=== PATIENT | female | born 1950 | race Caucasian/White ===

== ENCOUNTER → 2017-03-23 | Outpatient (CLI) | payer MEDICARE, OTHER ==
[~2017-03-23] MED LIST: CIPRO500 MG PO; FLAGYL500 MG PO; HYZAAR 50-12.51 EACH PO; IRON325 PO; LISINOPRIL10 MG PO; NORCO 5-325 TA1 EACH PO; PRILOSEC 20 MG20 MG PO; RESTASIS1 EACH OPHTHALMIC; SERTRALINE HCL50 MG PO; ZANTAC 150MG T150 MG PO
== END ==
LOC: M.RAD 16:36
DX: K44.9 Diaphragmatic hernia without obstruction or gangrene (principal); R06.09 Other forms of dyspnea; R06.02 Shortness of breath; R00.2 Palpitations; R55 Syncope and collapse

== ENCOUNTER → 2017-03-30 | Outpatient (CLI) | payer MEDICARE, OTHER | LOC: M.RAD 08:48 | DX: K21.9 Gastro-esophageal reflux disease without esophagitis (principal); K44.9 Diaphragmatic hernia without obstruction or gangrene ==

== ENCOUNTER → 2017-08-25 | Outpatient (CLI) | payer MEDICARE, OTHER | LOC: M.ULTRA 09:16 | DX: K80.20 Calculus of gallbladder without cholecystitis without obstruction (principal); K76.0 Fatty (change of) liver, not elsewhere classified; N28.1 Cyst of kidney, acquired; K21.9 Gastro-esophageal reflux disease without esophagitis ==

== ENCOUNTER 2017-08-26 10:52 | Inpatient (IN) | payer MEDICARE, OTHER ==
[~2017-08-26] VITALS: Ht 167.6 cm; Wt 88.0 kg
[~2017-08-26 10:52] MED LIST changes: -CIPRO500 MG PO; -FLAGYL500 MG PO; -HYZAAR 50-12.51 EACH PO; -IRON325 PO; -NORCO 5-325 TA1 EACH PO; -PRILOSEC 20 MG20 MG PO; -RESTASIS1 EACH OPHTHALMIC; -SERTRALINE HCL50 MG PO; -ZANTAC 150MG T150 MG PO
[2017-08-26 10:56] VITALS: BP 156/59
[2017-08-26 11:07] LABS: ABSOLUTE BASOPHILS 0.1 thou/uL (0.0-0.2); ABSOLUTE EOSINOPHILS 0.1 thou/uL (0.0-0.7); ABSOLUTE MONOCYTES 0.6 thou/uL (0.0-1.2); ABSOLUTE NEUTROPHILS 3.4 thou/uL (1.6-8.1); BASOPHILS 1.3 %; EOSINOPHILS 1.2 %; HEMATOCRIT 41.9 % (37.0-47.0); LYMPHOCYTES 32.8 %; MCH 30.8 pg (26.0-34.0); MCHC 33.5 g/dL (28.0-37.0); MCV 91.9 fL (80.0-100.0); MONOCYTES 9.3 %; MPV 11.4 fl. (7.2-11.1); NUCLEATED RBCS 0 /100WBC; PLATELET COUNT* 114 thou/uL (150-400); POLYS 55.4 %; RBC 4.56 mil/uL (4.20-5.00); RDW-CV 16.4 % (10.5-14.5); WBC 6.1 thou/uL (4.0-11.0)
[2017-08-26 11:15] LABS: ANION GAP 8 mmol/L (7-16); BUN 20 mg/dL (7-18); CALCIUM 9.5 mg/dL (8.5-10.1); CHLORIDE 103 mmol/L (98-107); CO2 28 mmol/L (21-32); GLUCOSE 84 mg/dL (70-99); POTASSIUM 3.7 mmol/L (3.5-5.1); SODIUM 139 mmol/L (136-145)
[2017-08-26 11:25] LABS: ALBUMIN 3.9 g/dL (3.4-5.0); ALKALINE PHOSPHATASE 98 U/L (46-116); LIPASE 199 U/L (73-393); NT-PRO BRAIN NAT PEPTIDE 222 pg/mL (<300); SGOT 19 U/L (15-37); SGPT 24 U/L (30-65); TOTAL BILIRUBIN 0.5 mg/dL (<0.1-1.0); TOTAL PROTEIN 7.2 g/dL (6.4-8.2); TROPONIN-I LEVEL <0.06 ng/mL (<0.06)
[2017-08-26] MEDS ORDERED: SERTRALINE HCL50 MG PO (11:31)
[2017-08-26] MEDS ORDERED: HYZAAR 50-12.51 EACH PO (11:31)
[2017-08-26] MEDS ORDERED: PRILOSEC 20 MG20 MG PO (11:33)
[2017-08-26] MEDS ORDERED: IRON325 PO (11:33)
[2017-08-26] MEDS ORDERED: ZANTAC 150MG T150 MG PO (11:34)
[2017-08-26 15:51] VITALS: BP 126/61
[2017-08-26 16:00] VITALS: BP 152/71
--- NOTE | 2017-08-26 17:04 | NUR ---
RECEIVED REPORT FROM IRENA LAROSE IN ER. PT TRANSFERED TO TELE FLOOR AROUND 1550, ASSUMED CARE. PT A/X4. VSS. O2 SAT 97% ON RA. PT ORIENTED TO ROOM, BED AND CALL LIGHT. IV TO RIGHT AC INTACT AND SALINE LOCKED. PT DENIES PAIN OR DISCOMFORT AT THIS TIME, STATES THAT THE MORPHINE SHE GOT IN ER WAS VERY EFFECTIVE. PT SEEN BY CARDIOLOGY - WILLL BE ABLE TO EAT DINNER, NPO AFTER MIDNIGHT FOR POSSIBLE STRESS TEST TOMORROW. PT TALKING WITH ON CELL PHONE. LOW FALL RISK PRECAUTIONS IN PLACE. CALL LIGHT IS WITHIN REACH. HOURLY ROUNDING PERFORMED. WCTM.
[2017-08-26 19:20] VITALS: BP 122/56
--- NOTE | 2017-08-26 19:25 | NUR ---
PTA REMAINS IN PLACE WITH NO CHANGES. PT CONTINUES TO DENY PAIN. PT EATING AND DRINKING WITHOUT ISUSE. PLAN IS FOR STRESS ECHO TOMORROW. PT CURRENTLY SITTING UP IN BED. CALL LIGHT IS WITHIN REACH. HOURLY ROUNDING PERFORMED.
--- NOTE | 2017-08-26 21:55 | NUR ---
ASSUMED CARE OF PT AT 1900. PT IS ALERT AND ORIENTED. VSS. PERRLA. NO COMPLAINTS OF PAIN. NO COMPAINTS OF CHEST PAIN. PT IS UP AD JOMAR. STEADY GAIT. PT IS IN SINUS RYTHM ON THE TELEMETRY. PT IS RESTING COMFORTABLY IN BED. RESPIRATIONS ARE EVEN AND NONLABORED. WILL CONTINUE TO MONITOR PT.
[2017-08-27] VITALS: BP 108/48
[2017-08-27 04:00] VITALS: BP 109/61
[2017-08-27 05:26] LABS: ABSOLUTE EOSINOPHILS 0.1 thou/uL (0.0-0.7); ABSOLUTE LYMPHOCYTES 2.4 thou/uL (0.8-5.3); ABSOLUTE MONOCYTES 0.4 thou/uL (0.0-1.2); ABSOLUTE NEUTROPHILS 2.3 thou/uL (1.6-8.1); BASOPHILS 0.8 %; EOSINOPHILS 2.3 %; HEMATOCRIT 38.4 % (37.0-47.0); HEMOGLOBIN 12.8 gm/dL (12.0-15.0); MCH 30.8 pg (26.0-34.0); MCHC 33.4 g/dL (28.0-37.0); MCV 92.1 fL (80.0-100.0); MONOCYTES 8.2 %; MPV 10.3 fl. (7.2-11.1); NUCLEATED RBCS 0 /100WBC; PLATELET COUNT* 160 thou/uL (150-400); POLYS 43.7 %; RBC 4.17 mil/uL (4.20-5.00); RDW-CV 16.3 % (10.5-14.5); WBC 5.3 thou/uL (4.0-11.0)
[2017-08-27 05:36] LABS: CALCIUM 9.8 mg/dL (8.5-10.1); POTASSIUM 4.3 mmol/L (3.5-5.1)
[2017-08-27 08:00] VITALS: BP 130/68
--- NOTE | 2017-08-27 10:58 | NUR ---
RECEIVED REPORT FROM KORI LAROSE. ASSUMED CARE OF PT AROUND 0730. PT A&O X4. VSS. O2 SAT 96% ON RA. DESIGNER IN PLACE TRACING SB. AM ASSESSMENT AND VITALS COMPLETED CHARTED. IV TO RIGHT AC INTACT AND SALINE LOCKED. PT DENIES PAIN OR DISCOMFORT THIS AM. PT WENT DOWNSTAIRS THIS AM FOR STRESS ECHO AND HAS JUST RETURNED. AWAITING RESULTS. PT HOPEFULL TO GO HOME THIS AFTERNOON. PT CURRENTLY SITTING UP IN BED DRINKING COFFEE. CALL LIGHT IS WITHIN REACH, LOW FALL RISK PRECAUTIONS ARE IN PLACE. HOURLY ROUNDING PERFORMED. WCTM.
[2017-08-27 11:30] VITALS: BP 116/66
--- NOTE | 2017-08-27 11:44 | NUR ---
CM SPOKE TO THE PATIENT TO DISCUSS HOME SITUATION, DISCHARGE PLANNING, AND TO INFORM OF THE ROLE OF CM. PATIENT ALERT, ORIENTED, AND INDEPENDENET WITH ADL'S. PATIENT DRIVES. PATIENT RESIDES AT HOME WITH SPOUSE. PATIENT OWNS 0 DME. PATIENT HAS NO HX OF HH OR SNF. PATIENT DOES NOT ANTICIPATE ANY DISCHAGRE PLANNING NEEDS. CM WILL REMAIN AVAILABLE TO ASSIST AND FOLLOW NEEDED.
--- NOTE | 2017-08-27 13:01 | EXE ---
[place] [address] STRESS ECHOCARDIOGRAM Name: BRI CESAR Room: [address] IN [facility]#: [id number] Admission: 08/26/17 Attend Phys: Pascual Sylvester, Discharge: Date of : 46 Date of Service: 08/27/17 1301 Report #: [id number] THIS REPORT FOR: //name// APPROVED REPORT Study performed: 08/27/2017 10:10:06 Exam: Stress Echocardiogram Indication: Chest pain Patient Location: In-Patient Stress Nurse: Tequila Velazquez RN Room #: [facility] Supervising Physician: Mark Carver MD Status: routine Ht: 5 ft 10 in HR: 73 bpm BP: 113/75 mmHg Rhythm: NSR Medical History Cardiac Risk Factors: FHX of CAD, HTN Procedure The patient underwent an Exercise Stress Test using the Neal Protocol. Blood pressure, heart rate, and EKG were monitored. An Echocardiogram was performed by telegraph repeater technician in four stages in quad fashion. At peak stress, four selected images were obtained and placed side by side with resting images for comparison. Stress Test Details Stress Test: Exercise stress testing was performed using a Neal protocol. HR Resting HR: 73 bpm Max Heart Rate (APMHR): 151 bpm Max HR Achieved: 136 bpm Target HR (85% APMHR): 128 bpm % of APMHR: 90 Recovery HR: 74 bpm HR response to stress: Normal HR response to stress BP Resting BP: 113/75 mmHg Max BP: 213/68 mmHg Recovery BP: 122/73 [place] [address] STRESS ECHOCARDIOGRAM Name: BRI CESAR Room: [address]#: [id number] Admission: 08/26/17 Attend Phys: Pascual Sylvester, Discharge: Date of : 46 Date of Service: 08/27/17 1301 Report #: [id number] Resting ECG: Sinus Rhythm, normal EKG Stress ECG: Sinus Tachycardia ST Change: None Arrhythmia: None Recovery ECG: Sinus Rhythm, normal EKG Recovery ST Change: None Recovery Arrhythmia: None Clinical Reason for Termination: Dyspnea, Maximal effort Exercise duration: 5 min 23 sec Highest Stage Achieved: Stage 2: 2.5 mph at 12% grade. Exercise capacity: 7.05 METs The patient had no significant symptoms with exercise stress. Stress ECG Conclusion The baseline 12-lead electrocardiogram showed normal sinus rhythm with no significant ST or T wave abnormality. EKGs obtained during and post exercise stress show sinus rhythm and sinus tachycardia with no significant ST or T wave changes when compared to baseline. There were no exercise-induced arrhythmias. Pre-Stress Echo The resting Echocardiogram showed normal left ventricular contractility with an estimated Ejection Fraction of about 60-65%. Post-Stress Echo The stress Echocardiogram showed normal left ventricular contractility with an estimated Ejection Fraction of about >70%. Conclusion Clinical Response: Non-ischemic Exercise Capacity: Average Stress ECG Response: Non-ischemic Stress Echo Images: Non-ischemic Other Information Study Quality: Good <ELECTRONICALLY SIGNED> By: Mark Carver MD, FACC 08/27/17 1301 1301 1301 Mark Carver MD, FACC /INF
--- NOTE | 2017-08-27 13:39 | EKG ---
[place] [address] ELECTROCARDIOGRAM REPORT Name: BRI CESAR Room: [address] [place] [facility]#: [id number] Admission: 08/26/17 Attend Phys: Pascual Sylvester MD Discharge: Date of : 46 Report #: [id number] THIS REPORT FOR: //name// [facility] ED Test Date: 2017-08-26 Test Time: 10:57:47 Pat Name: BRI CESAR Department: Room: Gender: Acid Retort Operator: Julito GALEAS : 1950 Requested By: Jamey Mota Order Number: [id number] MD: Antony Figueroa Measurements Intervals [place] Rate: 62 P: 59 IL: 126 QRS: 44 QRSD: 91 T: 30 QT: 413 QTc: 420 Interpretive Statements Sinus rhythm Low voltage, precordial leads Baseline wander in lead(s) V3 No previous ECG available for comparison Electronically Signed On 08-27-2017 13:39:22 CDT by Antony Figueroa [email or web address] <ELECTRONICALLY SIGNED> By: Antony Figueroa MD, [facility] 08/27/17 1339 1057 1057 Antony Figueroa MD, [facility] /EPI
[2017-08-27 13:41] VITALS: BP 116/66
--- NOTE | 2017-08-27 14:19 | NUR ---
STRESS ECHO RESULTS CAME BACK NEGATIVE. PT CLEAR TO DISCHARGE. DISCHARGE COMPLETED CHARTED. DISCHARGE ROBIN GONE OVER WITH PT. PT COMMUNICTES UNDERSTANDING. PT AWARE OF F/U APPOINTMENTS. IV ANC ALTERATIONS WORKROOM CLERK REMOVED. ALL BELONGINGS GATHERED AND SENT WITH PT. PT LEFT UNIT WITH NURSING STAFF. PT LEFT HOSPITAL IN CAR WITH .
== END 2017-08-27 14:18 | disposition home or self-care (01) | DRG 446 ==
LOC: M.ERS 10:52 → M.2W 12:54 → M.TBA-ER 12:54 → M.2W 15:46
PROVIDERS: Emergency Medicine Emergency Medical Services; ADMIT Internal Medicine
DX: K80.64 Calculus of gallbladder and bile duct with chronic cholecystitis without obstruction (principal); K21.9 Gastro-esophageal reflux disease without esophagitis; I10 Essential (primary) hypertension; Z98.49 Cataract extraction status, unspecified eye; Z79.82 Long term (current) use of aspirin; Z79.899 Other long term (current) drug therapy

== ENCOUNTER 2017-09-02 06:33 | Observation (INO) | payer MEDICARE, OTHER ==
[~2017-09-02] VITALS: Ht 167.6 cm; Wt 88.5 kg
--- NOTE | ~2017-09-02 | H ---
[address] [address] HISTORY AND PHYSICAL Name: BRI CESAR Room: [address] Parag Waggoner#: [id number] Admission: 09/02/17 Attend Phys: Joshua Sawant Discharge: 09/03/17 Date of : 46 Report #: [id number] THIS REPORT FOR: //name// For History and Physical please refer to the electronic consultation report from 08/27/2017 note in the patient's medical record. By: 0639Medical Records Staff VELASQUEZ /GREG
[~2017-09-02 06:33] MED LIST changes: +HYZAAR 50-12.51 EACH PO; +IRON325 PO; +PRILOSEC 20 MG20 MG PO; +SERTRALINE HCL50 MG PO; +ZANTAC 150MG T150 MG PO
[2017-09-02 07:31] VITALS: BP 126/80
[2017-09-02 11:00] VITALS: BP 139/66
[2017-09-02 15:49] VITALS: BP 127/68
[2017-09-02 20:00] VITALS: BP 122/63
[2017-09-03 00:13] VITALS: BP 121/57
[2017-09-03 04:14] VITALS: BP 130/69
[2017-09-03 08:24] VITALS: BP 126/71
[2017-09-03] MEDS ORDERED: NORCO 5-325 TA1 EACH PO (09:43)
[2017-09-03 10:19] VITALS: BP 126/71
[2017-09-03 10:55] VITALS: BP 126/71
--- NOTE | 2017-09-15 09:18 | OP ---
[facility] [address] [place] [address] OPERATIVE REPORT Name: BRI CESAR Room: [address] Parag Waggoner#: [id number] Admission: 09/02/17 Attend Phys: Joshua Sawant Discharge: 09/03/17 Date of : 46 Report #: [id number] THIS REPORT FOR: //name// CC: [facility] DATE OF SERVICE: 09/02/2017 PREOPERATIVE DIAGNOSIS: Symptomatic cholelithiasis. POSTOPERATIVE DIAGNOSES: Symptomatic cholelithiasis and chronic cholecystitis. PROCEDURE: Laparoscopic cholecystectomy. SURGEON: Joshua Sawant MD. ANESTHESIA: General. ESTIMATED BLOOD LOSS: Minimal. SPECIMEN: Gallbladder. DESCRIPTION OF PROCEDURE: After informed consent was obtained, the patient was brought to the operating room and placed supine. SCDs were placed and working, preoperative antibiotics were administered, general anesthesia was induced. The abdomen was prepped and draped in the usual sterile fashion. A 10 mm incision was made below the umbilicus. Fascia was incised. Trocar was placed. Pneumoperitoneum was established. Three right upper quadrant 5 mm ports were placed. Gallbladder was grasped at the fundus and retracted cephalad. Infundibulum was grasped and retracted laterally. I dissected out the cystic duct and the cystic artery. Cystic duct and artery were clipped and ligated leaving 2 clips on the remaining duct and one on the remaining artery. Gallbladder was then taken off the liver bed with electrocautery. It was placed into an Endopouch and removed. The fascia was then closed with a [id number] 0 Vicryl. Skin was closed with 4-0 Monocryl. Incisions were sealed with Dermabond. COMPLICATIONS: None. DISPOSITION: The patient was taken to recovery in satisfactory condition. <ELECTRONICALLY SIGNED> By: Joshua Sawant MD 09/15/17 0918 0935 1005Joshua Sawant MD /nt
== END 2017-09-03 10:55 | disposition home or self-care (01) ==
LOC: M.SUR 06:33 → M.ORTHSURG 10:08
PROVIDERS: ADMIT Surgery
DX: K80.10 Calculus of gallbladder with chronic cholecystitis without obstruction (principal); I10 Essential (primary) hypertension; Z98.890 Other specified postprocedural states

== ENCOUNTER 2017-10-20 16:16 | Inpatient (IN) | payer MEDICARE, OTHER ==
[~2017-10-20] VITALS: Ht 167.6 cm; Wt 88.0 kg
[~2017-10-20 16:16] MED LIST changes: +NORCO 5-325 TA1 EACH PO
[2017-10-20 16:18] VITALS: BP 114/60
[2017-10-20 16:38] LABS: ABSOLUTE BASOPHILS 0.1 thou/uL (0.0-0.2); ABSOLUTE EOSINOPHILS 0.1 thou/uL (0.0-0.7); ABSOLUTE LYMPHOCYTES 1.9 thou/uL (0.8-5.3); ABSOLUTE NEUTROPHILS 9.1 thou/uL (1.6-8.1); BASOPHILS 0.6 %; EOSINOPHILS 0.6 %; HEMATOCRIT 41.9 % (37.0-47.0); HEMOGLOBIN 14.1 gm/dL (12.0-15.0); LYMPHOCYTES 15.6 %; MCH 31.6 pg (26.0-34.0); MCHC 33.6 g/dL (28.0-37.0); MCV 94.3 fL (80.0-100.0); MPV 11.1 fl. (7.2-11.1); NUCLEATED RBCS 0 /100WBC; PLATELET COUNT* 210 thou/uL (150-400); POLYS 75.2 %; RBC 4.45 mil/uL (4.20-5.00); RDW-CV 14.4 % (10.5-14.5); WBC 12.1 thou/uL (4.0-11.0)
[2017-10-20 16:43] LABS: CREATININE 1.2 mg/dL (0.6-1.3); POTASSIUM 3.7 mmol/L (3.5-5.1)
[2017-10-20 16:47] LABS: ALBUMIN 3.7 g/dL (3.4-5.0); TOTAL BILIRUBIN 0.5 mg/dL (<0.1-1.0); TOTAL PROTEIN 7.1 g/dL (6.4-8.2)
[2017-10-20 17:10] LABS: URINE BLOOD NEGATIVE (Negative); URINE CLARITY CLEAR; URINE COLOR YELLOW; URINE GLUCOSE-RANDOM NEGATIVE (Negative); URINE LEUKOCYTES-REFLEX NEGATIVE (Negative); URINE NITRITE-REFLEX NEGATIVE (Negative); URINE PROTEIN 1+ (Negative); URINE UROBILINOGEN 0.2 E.U./dl (0.2-1.0)
[2017-10-20 17:16] LABS: ICTOTEST (BILI CONFIRMATORY) Negative (Negative); URINE BILIRUBIN 1+ (Negative); URINE KETONES 3+ (Negative)
[2017-10-20 19:31] VITALS: BP 122/62
[2017-10-20 22:02] VITALS: BP 122/57
[2017-10-20] MEDS ORDERED: RESTASIS1 EACH OPHTHALMIC (23:44)
[2017-10-21 01:49] VITALS: BP 112/64
[2017-10-21 04:10] LABS: NUCLEATED RBCS 0 /100WBC
[2017-10-21 04:12] LABS: HEMATOCRIT 39.2 % (37.0-47.0); HEMOGLOBIN 13.3 gm/dL (12.0-15.0); MCH 32.3 pg (26.0-34.0); MCHC 33.9 g/dL (28.0-37.0); MCV 95.2 fL (80.0-100.0); MPV 10.9 fl. (7.2-11.1); PLATELET COUNT* 146 thou/uL (150-400); RBC 4.11 mil/uL (4.20-5.00); RDW-CV 14.5 % (10.5-14.5); WBC 10.3 thou/uL (4.0-11.0)
[2017-10-21 04:20] VITALS: BP 101/53
[2017-10-21 04:24] LABS: CALCIUM 7.8 mg/dL (8.5-10.1); CREATININE 1.3 mg/dL (0.6-1.3); POTASSIUM 4.3 mmol/L (3.5-5.1)
[2017-10-21 05:36] LABS: ABSOLUTE LYMPHOCYTES 0.3 thou/uL (0.8-5.3); ABSOLUTE MONOCYTES 0.3 thou/uL (0.0-1.2); ABSOLUTE NEUTROPHILS 9.7 thou/uL (1.6-8.1)
[2017-10-21 05:37] LABS: ANISOCYTOSIS 1+; PLATELET ESTIMATE DECREASED; POIKILOCYTOSIS 1+
[2017-10-21 08:55] VITALS: BP 90/55
--- NOTE | 2017-10-21 10:53 | EKG ---
[place] [address] ELECTROCARDIOGRAM REPORT Name: BRI CESAR Room: [address] ADM IN .R.#: [id number] Admission: 10/20/17 Attend Phys: Claudia Silva MD Discharge: Date of : 46 Report #: [id number] THIS REPORT FOR: //name// [facility] ED Test Date: 2017-10-20 Test Time: 16:23:02 Pat Name: BRI CESAR Department: Room: [address] Gender: F Retail Field Representative: Julito VALLEJO : 1950 Requested By: Claudia Silva Order Number: [id number] Ema MD: Antony Figueroa Measurements Intervals [place] Rate: 68 P: 31 TN: 137 QRS: 60 QRSD: 99 T: 23 QT: 428 QTc: 456 Interpretive Statements Sinus rhythm Compared to ECG 08/26/2017 10:57:47 No significant changes Electronically Signed On 10-21-2017 10:53:43 CDT by Antony Figueroa [email or web address] <ELECTRONICALLY SIGNED> By: Antony Figueroa MD, [facility] 10/21/17 1053 162 22 Antony Figueroa MD, [facility] /EPI
[2017-10-21 16:47] VITALS: BP 105/56
[2017-10-21 22:30] VITALS: BP 92/48
[2017-10-22 00:23] VITALS: BP 109/53
[2017-10-22 04:11] VITALS: BP 122/63
[2017-10-22 08:00] VITALS: BP 107/55
--- NOTE | 2017-10-22 09:50 | OP ---
[address] [address] OPERATIVE REPORT Name: BRI CESAR Room: [address] IN .R.#: [id number] Admission: 10/20/17 Attend Phys: Claudia Silva MD Discharge: Date of : 46 Report #: [id number] THIS REPORT FOR: //name// CC: Claudia Figueroa DATE OF SERVICE: 10/20/2017 PREOPERATIVE DIAGNOSIS: Acute appendicitis. POSTOPERATIVE DIAGNOSIS: Perforated appendicitis. OPERATIVE PROCEDURE: Laparoscopic appendectomy. ANESTHESIA: General endotracheal, 0.5% Marcaine infiltrated in the wound site. FINDINGS: A distal appendix with perforation and fecalith evacuated from the abdominal cavity. OPERATIVE PROCEDURE: The patient was placed under general endotracheal anesthesia and the abdomen was shaved, prepped and draped in a sterile fashion. A timeout taken. Antibiotics of Zosyn was administered. We began by reopening the previous infraumbilical scar with a #15 scalpel blade after infiltrating with 0.5% Marcaine. Cautery dissection down to the anterior fascia, which was lifted with two Kochers and the previous stitch from the previous surgery was identified. The wound at that point was transversely transected with a #15 scalpel blade and blunt dissection with a mosquito and finger dissection into the peritoneal cavity was accomplished. An 0 PDS was looped through this incision site and a size 12 Lauren trocar was placed into the peritoneal cavity and secured at the skin. Insufflation with carbon dioxide to 5 liter was completed and a 5 mm 30-degree scope was inserted. Upon inspection of the right lower quadrant, there had been some inflammatory changes and peritonitis seen in the lower abdomen with some serositis at the distal ileum. Upon further inspection, I then palpated in the suprapubic and right mid abdomen, with 0.5% Marcaine made through 2 small stab incisions and placed two 5 mm trocars from those advantage points. The patient was placed in Trendelenburg and left lateral decubitus position. Using an Endo Justin and a blunt bowel grasper I rotated the cecum and could identify the base of the appendix, which had a small amount of feculent material at its base consistent with perforation. There was no abscess seen. The perforation was recent, but there were a lot of inflammatory changes. I then carefully meticulously grabbed the tip of the appendix and the mesoappendix was then dissected with ligature until I was able to lift the appendix and secured at the appendiceal cecal junction. The Covidien Endo-RAMESH size 30 with a white load was brought into the field, placed across the base and fired. There was still an appendiceal stump so I dissected more with ligature and lifted the stump up and got [place] [id number] OPERATIVE REPORT Name: BRI CESAR Room: [address] IN .R.#: [id number] Admission: 10/20/17 Attend Phys: Claudia Silva MD Discharge: Date of : 46 Report #: [id number] Endo-RAMESH at the appendiceal cecal junction. I then retrieved both these specimens, placed one in an Endopouch and the other one, both pulled from the umbilical port. The fecalith was retrieved with an Endo Justin in piecemeal until it was completely removed. The abdomen was copiously irrigated with 2 liters of saline and aspirated until the field was dry. There was a small bleeding mesentery that was controlled with ligature as well. The laparoscopic instruments were removed and the trocars were removed. The patient was placed back in neutral position. The umbilical 0 PDS was tied and infiltrated with 0.5% Marcaine and then all three incisions were closed with buried 4-0 PDS sutures and sealed with Dermabond. Estimated blood loss 10 mL. Sponge and instrument counts correct. The patient was extubated, returned to recovery in stable condition. <ELECTRONICALLY SIGNED> By: Claudia Silva MD 10/22/17 0950 2124 [id number] Silva MD /vanessa
[2017-10-22 10:13] LABS: HEMATOCRIT 36.1 % (37.0-47.0); MCH 31.9 pg (26.0-34.0); MCHC 33.3 g/dL (28.0-37.0); MCV 95.8 fL (80.0-100.0); MPV 12.1 fl. (7.2-11.1); RBC 3.77 mil/uL (4.20-5.00); RDW-CV 14.6 % (10.5-14.5); WBC 9.8 thou/uL (4.0-11.0)
[2017-10-22 10:18] LABS: CALCIUM 8.5 mg/dL (8.5-10.1); CREATININE 1.1 mg/dL (0.6-1.3); POTASSIUM 3.4 mmol/L (3.5-5.1)
[2017-10-22 16:00] VITALS: BP 110/52
[2017-10-22 22:04] VITALS: BP 136/58
[2017-10-23 00:24] VITALS: BP 134/67
[2017-10-23 04:30] VITALS: BP 139/79
[2017-10-23 08:05] VITALS: BP 139/81
[2017-10-23 21:30] VITALS: BP 147/88
[2017-10-24 05:50] LABS: HEMATOCRIT 39.2 % (37.0-47.0); HEMOGLOBIN 13.2 gm/dL (12.0-15.0); MCH 31.9 pg (26.0-34.0); MCHC 33.5 g/dL (28.0-37.0); MCV 95.2 fL (80.0-100.0); MPV 9.3 fl. (7.2-11.1); NUCLEATED RBCS 0 /100WBC; RBC 4.12 mil/uL (4.20-5.00); RDW-CV 14.1 % (10.5-14.5)
[2017-10-24 06:00] LABS: PLATELET COUNT* 240 thou/uL (150-400)
[2017-10-24 06:17] LABS: ALBUMIN 2.6 g/dL (3.4-5.0); CALCIUM 8.4 mg/dL (8.5-10.1); CREATININE 0.9 mg/dL (0.6-1.3); POTASSIUM 3.2 mmol/L (3.5-5.1); TOTAL BILIRUBIN 0.4 mg/dL (<0.1-1.0); TOTAL PROTEIN 6.8 g/dL (6.4-8.2)
[2017-10-24 07:32] LABS: ABSOLUTE LYMPHOCYTES 0.8 thou/uL (0.8-5.3); ABSOLUTE MONOCYTES 0.5 thou/uL (0.0-1.2); ABSOLUTE NEUTROPHILS 7.7 thou/uL (1.6-8.1)
[2017-10-24 07:33] LABS: PLATELET ESTIMATE ADEQUATE
[2017-10-24 08:00] VITALS: BP 152/79
--- NOTE | 2017-10-24 12:30 | EKG ---
[place] [address] ELECTROCARDIOGRAM REPORT Name: BRI CESAR Room: [address] ADM IN M.R.#: [id number] Admission: 10/20/17 Attend Phys: Claudia Silva MD Discharge: Date of : 46 Report #: [id number] THIS REPORT FOR: //name// [facility] Test Date: 2017-10-23 Test Time: 12:08:53 Pat Name: BRI CESAR Department: Room: [address] Gender: F Emblem Maker: SSULLLORE : 1950 Requested By: Claudia Silva Order Number: [id number] Reading MD: Matthew Hwang Measurements Intervals [place] Rate: 71 P: 32 MA: 144 QRS: 17 QRSD: 83 T: 0 QT: 411 QTc: 447 Interpretive Statements Sinus rhythm Baseline wander in lead(s) V1 Compared to ECG 10/20/2017 16:23:02 No significant changes Electronically Signed On 10-24-2017 12:30:31 CDT by Matthew Hwang [email or web address] <ELECTRONICALLY SIGNED> By: Matthew Hwang MD, [facility] 10/24/17 1230 1208 1208 Matthew Hwang MD, [facility] /EPI
[2017-10-24 17:02] VITALS: BP 130/80
[2017-10-24 19:30] VITALS: BP 132/87
[2017-10-25 05:00] LABS: CALCIUM 8.3 mg/dL (8.5-10.1); CREATININE 0.9 mg/dL (0.6-1.3); POTASSIUM 3.3 mmol/L (3.5-5.1)
[2017-10-25 08:30] VITALS: BP 161/73
[2017-10-25 16:00] VITALS: BP 145/78
[2017-10-25 19:40] VITALS: BP 149/82
[2017-10-26 09:00] VITALS: BP 140/75
--- NOTE | 2017-10-26 12:05 | PATH ---
[address] [address] PATHOLOGY RPT PROCEDURE Name: BRI PABLO Room: [address] IN .#: [id number] Admission: 10/20/17 Date of : 46 Discharge: Report #: [id number] Path Case #: [id number] [facility] Accession Number: [id number] . 01 Material submitted: . APPENDIX . 01 Clinical history: . Perforated appendicitis . 02 Diagnosis: Appendix: - Acute appendicitis, periappendicitis and serositis with serosal adhesions and luminal fecalith. (DARCI:mukesh; 10/25/2017) . QMS/10/25/2017 . 02 Electronically signed: . Andrew Arredondo MD, Pathologist NPI- [id number] . 01 Gross description: . The specimen is received in formalin, labeled "Bri Pablo, appendix" and consists of an appendix measuring 6.5 cm in length and ranging from 0.4-0.7 cm in diameter with mesoappendix measuring 4.3 x 2.0 x 1.0 cm. The serosa is reveles-angeles with fibrous adhesions along the entire specimen. Sectioning reveals a pinpoint to dilated lumen containing green fecal material and a single fecalith measuring 0.5 x 0.4 x 0.4 cm. Machine Boss sections including the entire dilated lumen with serosal adhesions are submitted in A1-A3. (SDY; 10/21/2017) SYU/SYU . 02 Pathologist provided ICD-10: K35.80 . 02 CPT . [id number] Performed at: [address], [place], [place] [id number] MD Denilson Dodson MD Phone: [phone] Performed at: 02 [facility] [address], [place], [place] [id number] MD Andrew Arredondo MD Phone: [phone]
[2017-10-26] MEDS ORDERED: FLAGYL500 MG PO (14:47)
[2017-10-26] MEDS ORDERED: CIPRO500 MG PO (14:47)
[2017-10-26 15:02] VITALS: BP 140/75
== END 2017-10-26 16:33 | disposition home or self-care (01) | DRG 339 ==
LOC: M.SUR 16:16 → M.ERS 16:16 → M.TBA-ER 20:09 → M.ORTHSURG 20:09
PROVIDERS: Nurse Practitioner Family; ADMIT Surgery
PROC: 0DTJ4ZZ Resection of Appendix, Percutaneous Endoscopic Approach (ICD-10-PCS; principal; 2017-10-20)
DX: K35.2 Acute appendicitis with generalized peritonitis (principal); K56.7 Ileus, unspecified; R65.10 Systemic inflammatory response syndrome (SIRS) of non-infectious origin without acute organ dysfunction; I10 Essential (primary) hypertension; Z90.49 Acquired absence of other specified parts of digestive tract; Z79.899 Other long term (current) drug therapy

== ENCOUNTER → 2017-12-03 | Outpatient (CLI) | payer MEDICARE, OTHER ==
[~2017-12-03] MED LIST changes: +CIPRO500 MG PO; +FLAGYL500 MG PO; +RESTASIS1 EACH OPHTHALMIC
== END ==
LOC: M.CT 09:00
DX: H93.A1 Pulsatile tinnitus, right ear (principal); I10 Essential (primary) hypertension; K44.9 Diaphragmatic hernia without obstruction or gangrene; Z72.89 Other problems related to lifestyle

== ENCOUNTER → 2018-06-13 | Outpatient (CLI) | payer MEDICARE, OTHER | LOC: M.RAD 15:37 | DX: Z12.31 Encounter for screening mammogram for malignant neoplasm of breast (principal); M81.0 Age-related osteoporosis without current pathological fracture; Z78.0 Asymptomatic menopausal state ==

== ENCOUNTER → 2018-06-23 | Outpatient (CLI) | payer MEDICARE, OTHER | LOC: M.CT 14:50 | DX: I67.2 Cerebral atherosclerosis (principal); I65.23 Occlusion and stenosis of bilateral carotid arteries; G44.311 Acute post-traumatic headache, intractable; S00.83XD Contusion of other part of head, subsequent encounter; Z88.5 Allergy status to narcotic agent; W19.XXXD Unspecified fall, subsequent encounter ==

== ENCOUNTER 2018-06-30 15:21 | Observation (INO) | payer MEDICARE, OTHER ==
[~2018-06-30] VITALS: Ht 167.6 cm; Wt 80.3 kg
[2018-06-30 15:28] VITALS: BP 93/53
[2018-06-30 15:50] LABS: ABSOLUTE EOSINOPHILS 0.1 thou/uL (0.0-0.7); ABSOLUTE LYMPHOCYTES 2.3 thou/uL (0.8-5.3); ABSOLUTE MONOCYTES 0.5 thou/uL (0.0-1.2); ABSOLUTE NEUTROPHILS 4.5 thou/uL (1.6-8.1); BASOPHILS 0.5 %; EOSINOPHILS 0.9 %; HEMATOCRIT 42.7 % (37.0-47.0); HEMOGLOBIN 14.4 gm/dL (12.0-15.0); LYMPHOCYTES 31.2 %; MCH 32.6 pg (26.0-34.0); MCHC 33.8 g/dL (28.0-37.0); MCV 96.3 fL (80.0-100.0); NUCLEATED RBCS 0 /100WBC; PLATELET COUNT* 199 thou/uL (150-400); POLYS 60.4 %; RBC 4.44 mil/uL (4.20-5.00); RDW-CV 13.9 % (10.5-14.5); WBC 7.4 thou/uL (4.0-11.0)
[2018-06-30 16:10] LABS: ALBUMIN 3.8 g/dL (3.4-5.0); ALKALINE PHOSPHATASE 93 U/L (46-116); ANION GAP 15 mmol/L (7-16); BUN 18 mg/dL (7-18); CALCIUM 8.9 mg/dL (8.5-10.1); CHLORIDE 104 mmol/L (98-107); CO2 22 mmol/L (21-32); CREATININE 1.1 mg/dL (0.6-1.3); GLUCOSE 129 mg/dL (70-99); LIPASE 225 U/L (73-393); MAGNESIUM 1.9 mg/dL (1.8-2.4); NT-PRO BRAIN NAT PEPTIDE 236 pg/mL (<300); SGOT 14 U/L (15-37); SGPT 19 U/L (30-65); SODIUM 141 mmol/L (136-145); TOTAL BILIRUBIN 0.2 mg/dL (<0.1-1.0); TROPONIN-I LEVEL <0.06 ng/mL (<0.06)
[2018-06-30 19:45] VITALS: BP 107/65
[2018-06-30 20:00] VITALS: BP 132/66
[2018-07-01] VITALS: BP 137/67
--- NOTE | 2018-07-01 02:18 | NUR ---
68 Y/O FEMALE ADMITTED TO TELEMETRY ROOM 224 AT APPROXIMATELY 1999. PT TRACING SR ON MONITOR. DENIES PAIN, CP, N/V/D, DIZZINESS OR SOA. PT REPORTS EATING PANAMANIAN FOOD FOR LUNCH AND HAVING SEVERAL MARGARITAS WHEN SHE BEGAN EXPERIENCING CP AND BECAME ANXIOUS AND SOA. PT RECEIVED GI COCKTAIL IN ED AND HAS BEEN PAIN FREE AND NOT SOA SINCE. VSS. PT IS UP AD JOMAR WITH STEADY GAIT. HOURLY ROUNDING IN PLACE FOR PT SAFETY. CLWR.
[2018-07-01 04:00] VITALS: BP 127/63
[2018-07-01 08:00] VITALS: BP 136/67
--- NOTE | 2018-07-01 08:00 | NUR ---
RECEIVED REPORT AND ASSUMED CARE OF PT AT 0730.PT IS A/OX4.SR ON THE MONITOR.ON RA.IV PATENT AND SALINE LOCKED.CLEAR LUNGS SOUNDS.NPO FOR STRESS TEST.BRUSING ON FACE AND HAND DUE TO HX OF FALL.NO COMPLAINTS OF CHEST PAIN AND SOA.CALL LIGHT AND FALL PRECAUTIONS IN PLACE.WILL CONTINUE TO MONITOR.
--- NOTE | 2018-07-01 10:40 | NUR ---
CM completed initial assessment to discuss d/c plan. pt A&Ox4. Has family support; lives w/spouse. Independent w/ADLs. Active & employeed. No DMEs. No hx w/SNF. No hx w/HH. plans to d/c to home. No anticipated needs at this time. CM will remain available to assist PRN.
[2018-07-01 11:29] LABS: CALCIUM 9.5 mg/dL (8.5-10.1); MAGNESIUM 2.3 mg/dL (1.8-2.4); POTASSIUM 4.1 mmol/L (3.5-5.1)
[2018-07-01 11:46] VITALS: BP 139/81
[2018-07-01 16:08] VITALS: BP 144/61
--- NOTE | 2018-07-01 16:12 | 2DMMODE ---
[place] [address] 2 D/M-MODE ECHOCARDIOGRAM Name: BRI CESAR Room: [facility] IN [facility]#: [id number] Admission: 06/30/18 Attend Phys: Fang Carpenter Discharge: Date of : 46 Date of Service: 07/01/18 1612 Report #: [id number] THIS REPORT FOR: //name// APPROVED REPORT Study performed: 07/01/2018 15:38:03 EXAM: Comprehensive 2D, Doppler, and color-flow Echocardiogram Patient Location: In-Patient Room #: [facility] Status: routine BSA: 1.90 HR: 68 bpm BP: 139/81 mmHg Rhythm: NSR Other Information Study Quality: Good Indications Chest Pain 2D Dimensions IVSd: 8.50 (7-11mm) LVOT Diam: 19.39 (18-24mm) LVDd: 47.31 mm PWd: 9.52 (7-11mm) Ascending Ao: 35.88 (22-36mm) LVDs: 24.97 (25-40mm) Aortic Root: 31.05 mm Volumes Left Atrial Volume (Systole) LA ESV Index: 25.80 mL/m2 Aortic Valve AoV Peak Florin.: 1.55 m/s AO Peak Gr.: 9.64 mmHg LVOT Max P.18 mmHg AO Mean Gr.: 4.90 mmHg LVOT Mean P.82 mmHg LVOT Max V: 1.02 m/s AO V2 VTI: 31.43 cm LVOT Mean V: 0.61 m/s ABIGAIL (VTI): 2.59 cm2 LVOT V1 VTI: 27.59 cm AI [place]: 2.39 m/s2 AI PHT: 495.82 ms Mitral Valve E/A Ratio: 0.84 [place] [address] 2 D/M-MODE ECHOCARDIOGRAM Name: BRI CESAR Room: [address] ADM IN M.R.#: [id number] Admission: 06/30/18 Attend Phys: Fang Carpenter Discharge: Date of : 46 Date of Service: 07/01/18 1612 Report #: [id number] MV Decel. Time: 198.91 ms MV E Max Florin.: 0.88 m/s MV PHT: 57.68 ms MVA (PHT): 3.81 cm2 TDI E/Lateral E': 7.33 E/Medial E': 9.78 Medial E' Florin.: 0.09 m/s Lateral E' Florin.: 0.12 m/s Pulmonary Valve PV Peak Florin.: 0.72 m/s PV Peak Gr.: 2.10 mmHg Tricuspid Valve RAP Estimate: 5.00 mmHg TR Peak Gr.: 26.10 mmHg RVSP: 31.00 mmHg PA Pressure: 31.00 mmHg Left Ventricle The left ventricle is normal size. There is normal LV segmental wall motion. There is normal left ventricular wall thickness. Left ventricular systolic function is normal. The left ventricular ejection fraction is within the normal range. LVEF is 60%. Grade I - abnormal relaxation pattern. Right Ventricle The right ventricle is normal size. The right ventricular systolic function is normal. Atria The left atrium size is normal. The right atrium size is normal. Aortic Valve Mild aortic valve sclerosis. Mild aortic regurgitation. There is no aortic valvular stenosis. Mitral Valve The mitral valve is normal in structure. Trace mitral regurgitation. No evidence of mitral valve stenosis. Tricuspid Valve The tricuspid valve is normal in structure. Mild tricuspid regurgitation. Mild pulmonary hypertension[place] [address] 2 D/M-MODE ECHOCARDIOGRAM Name: BRI CESAR Room: [address] IN [facility]#: [id number] Admission: 06/30/18 Attend Phys: Fang Carpenter Discharge: Date of : 46 Date of Service: 07/01/18 1612 Report #: [id number] The pulmonary valve is normal in structure. Trace pulmonic regurgitation. Great Vessels The aortic root is normal in size. IVC is normal in size and collapses >50% with inspiration. Pericardium There is no pericardial effusion. <Conclusion> The left ventricle is normal size. There is normal left ventricular wall thickness. Left ventricular systolic function is normal. The left ventricular ejection fraction is within the normal range. LVEF is 60%. Grade I - abnormal relaxation pattern. The right ventricle is normal size. The left atrium size is normal. Mild aortic valve sclerosis. Mild aortic regurgitation. There is no aortic valvular stenosis. The mitral valve is normal in structure. Trace mitral regurgitation. The tricuspid valve is normal in structure. IVC is normal in size and collapses >50% with inspiration. There is no pericardial effusion. There is normal LV segmental wall motion. <ELECTRONICALLY SIGNED> By: Sherwin Fonseca MD, FACC 07/01/181611 11 11 Sherwin Fonseca MD, FACC /INF
--- NOTE | 2018-07-01 18:07 | NUR ---
VSS.PT IS A/OX4.TRACING SR ON THE MONITOR.ON RA.IV PATENT AND SALINE LOCKED.STRESS TEST COMPLETED TODAY.NO COMPLAINTS OF CHEST PAIN.CALL LIGHT AND FALL PRECAUTIONS IN PLACE.WILL CONTINUE TO MONITOR.
--- NOTE | 2018-07-01 18:25 | CARDNUC ---
[place] [address] CARDIAC NUCLEAR IMAGING REPORT Name: BRI CESAR Room: [address] IN [facility]#: [id number] Admission: 06/30/18 Attend Phys: Fang Carpenter Discharge: Date of : 46 Date of Service: 07/01/18 1825 Report #: [id number] THIS REPORT FOR: //name// APPROVED REPORT Imaging Protocol: Rest Tc-99m/Stress Tc-99m 1 day Study performed: 07/01/2018 11:06:00 Indication: Chest pain Patient Location: In-Patient Room #: 224 Stress Tech: Monica Enciso Stress Nurse: Tequila Velazquez RN NM Tech:YVONNE Marquis Ht: 5 ft 6 in Wt: 177 lbs BSA: 1.90 m2 BMI: 28.56 Medical History Medical History: hypertension Medications: losartan, asa 325 Allergies: nkda Exercise History: Physically active Resting Data Rest SPECT myocardial perfusion imaging was performed in supine position 30 minutes following the intravenous injection of 10.8 mCi of Tc-99m Sestamibi. Time of rest injection: 1400 The images were gated to evaluate regional wall motion and calculate left ventricular ejection fraction. Administration Route: IV Administration Site: Right Arm Pharmacologic Stress Pharmacologic stress test was performed by injecting Regadenoson 0.4 mg IV push over 10-15 seconds immediately followed by the intravenous injection of 34.2 mCi of Tc-99m Sestamibi. Time of stress injection: 1530 Administration Route: IV Administration Site: Right Arm Gated Stress SPECT was performed 40 minutes after stress injection. The images were gated to evaluate regional wall motion and calculate left [place] [address] CARDIAC NUCLEAR IMAGING REPORT Name: BRI CESAR Room: [address] ..#: [id number] Admission: 06/30/18 Attend Phys: Fang Carpenter Discharge: Date of : 46 Date of Service: 07/01/18 1825 Report #: [id number] Prone imaging was performed. Stress Test Details Stress Test: Pharmacologic stress testing performed using 0.4 mg of regadenoson per 5 mL given IV over 10 seconds. Reason for pharmacologic stress test: physical limitation. HR Max Heart Rate (APMHR): 150 bpm Resting HR: 80 bpm Target HR (85% APMHR): 127 bpm Max HR Achieved: 124 bpm % of APMHR: 82 Recovery HR: 89 bpm BP Resting BP: 129/69 mmHg Max BP: 153/71 mmHg Recovery BP: 135/84 mmHg ECG Resting ECG: Sinus Rhythm Stress ECG: Sinus Tachycardia ST Change: None Arrhythmia: None Recovery ECG: Sinus Rhythm Recovery ST Change: None Recovery Arrhythmia: None Clinical Reason for Termination: Completed protocol The patient tolerated Lexiscan infusion without symptoms. Nurse Comments pt had recent fall. knees sore Stress ECG Conclusion The baseline 12-lead EKG shows sinus rhythm without significant ST or T wave abnormality. EKGs obtained during and post Lexiscan infusion show sinus rhythm and sinus tachycardia with no significant ST or T wave changes when compared to baseline. There were no stress-induced arrhythmias. Study Quality Study: Good Artifact: No artifact Study Data At rest, the left ventricular ejection fraction was 73%.. [place] [address] CARDIAC NUCLEAR IMAGING REPORT Name: BRI CESAR Room: [address] IN [facility].#: [id number] Admission: 06/30/18 Attend Phys: Fang Carpenter Discharge: Date of : 46 Date of Service: 07/01/18 1825 Report #: [id number] Post stress, the left ventricular ejection was 62%.. TID = 1.25. Perfusion Normal left ventricular perfusion. Wall Motion Normal left ventricular wall motion. Nuclear Conclusion ECG Findings: negative for ischemia Clinical Findings: negative for ischemia Nuclear Findings: negative for ischemia Exercise Capacity: not assessed Left Ventricular Function: normal Risk Study: low Myocardial perfusion images show no defect to suggest infarct or ischemia. Left ventricular systolic function is normal. This is a low risk study. <Conclusion> The baseline 12-lead EKG shows sinus rhythm without significant ST or T wave abnormality. EKGs obtained during and post Lexiscan infusion show sinus rhythm and sinus tachycardia with no significant ST or T wave changes when compared to baseline. There were no stress-induced arrhythmias. <ELECTRONICALLY SIGNED> By: Mark Carver MD, [facility] 07/01/181824 24 24 Mark Carver MD, FACC /INF
[2018-07-01 18:40] VITALS: BP 144/61
--- NOTE | 2018-07-02 12:26 | EKG ---
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
--- NOTE | 2018-07-02 12:29 | EKG ---
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
== END 2018-07-01 18:59 | disposition home or self-care (01) ==
LOC: M.ERS 15:21 → M.2W 17:14 → M.TBA-ER 17:14 → M.2W 17:14
PROVIDERS: Emergency Medicine Emergency Medical Services; Family Medicine; ADMIT Internal Medicine
DX: I20.9 Angina pectoris, unspecified (principal); I10 Essential (primary) hypertension; K21.9 Gastro-esophageal reflux disease without esophagitis; E87.6 Hypokalemia; Z79.899 Other long term (current) drug therapy; Z98.890 Other specified postprocedural states; Z90.89 Acquired absence of other organs

== ENCOUNTER → 2018-07-18 | Outpatient (CLI) | payer MEDICARE, OTHER | LOC: M.MRI 13:02 | DX: I67.82 Cerebral ischemia (principal); M54.5 Low back pain; W19.XXXD Unspecified fall, subsequent encounter ==

== ENCOUNTER → 2018-07-20 | Outpatient (CLI) | payer MEDICARE, OTHER | LOC: M.MRI 07-07 16:36 | DX: M47.815 Spondylosis without myelopathy or radiculopathy, thoracolumbar region (principal); M51.25 Other intervertebral disc displacement, thoracolumbar region; M51.27 Other intervertebral disc displacement, lumbosacral region; M48.061 Spinal stenosis, lumbar region without neurogenic claudication; R26.89 Other abnormalities of gait and mobility; N28.1 Cyst of kidney, acquired; R35.0 Frequency of micturition; R53.83 Other fatigue; W19.XXXD Unspecified fall, subsequent encounter ==

== ENCOUNTER → 2020-12-11 | Day surgery (SDC) | payer MEDICARE, OTHER ==
[~2020-12-11] MED LIST changes: +DORYX MPC120 MG PO; +LOSARTAN-HCTZ1 EACH PO; +PROLIA60 MG/1 ML SUBQ; +SERTRALINE HCL100 MG PO
[2020-12-11 06:45] LABS: HEMATOCRIT 40.5 % (37.0-47.0); MCH 33.7 pg (26.0-34.0); MCHC 34.6 g/dL (28.0-37.0); MCV 97.6 fL (80.0-100.0); MPV 10.9 fl. (7.2-11.1); RBC 4.15 mil/uL (4.20-5.00); RDW-CV 12.7 % (10.5-14.5); WBC 5.3 thou/uL (4.0-11.0)
[2020-12-11 07:05] LABS: CALCIUM 9.1 mg/dL (8.5-10.1); POTASSIUM 3.3 mmol/L (3.5-5.1)
--- NOTE | 2020-12-11 14:46 | EKG ---
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
--- NOTE | 2020-12-16 12:25 | PATH ---
[facility] [address] [place] [address] PATHOLOGY RPT PROCEDURE Name: BRI PABLO Room: [facility].Quique#: [id number] Admission: 12/11/20 Date of : 46 Discharge: Report #: [id number] Path Case #: [id number] [facility] Accession Number: [id number] . 01 Material submitted: . groin - LEFT GROIN MASS. Modifiers: left . 02 Diagnosis: Left groin mass: - Benign skin with ruptured epithelial inclusion cyst associated with acute, chronic and foreign body type granulomatous inflammation and fibrosis. ([facility]; 12/13/2020) QTP 12/13/2020 1137 Local . 02 Electronically signed: . Andrew Arredondo MD, Pathologist NPI- [id number] . 01 Gross description: . Received in formalin labeled "Bri Pablo, left groin mass" is an unoriented ellipse of skin measuring 2.0 x 0.9 x 1.0 cm. The skin surface is light ang[place] and grossly unremarkable. Sectioning reveals an intact cystic structure measuring 0.5 cm filled with pale ang[place] friable material. The margin is inked and the specimen is sectioned into 8 pieces. The specimen is submitted representatively in A1. ([facility]; 12/12/2020) [facility] 12/13/2020 1136 [facility] . 02 Pathologist provided ICD-10: L72.0, L98.9, L90.5 . 02 CPT . 714872 Specimen Comment: A courtesy copy of this report has been sent to [phone], [phone] Specimen Comment: [id number] Specimen Comment: Report sent to / DR CARDENAS Specimen Comment: A duplicate report has been generated due to demographic updates. Performed at: 01 [facility] [address], [place], [place] [id number] MD Tomer Sheehan MD Phone: [phone] Performed at: 02 [facility] [address], [place], [place] [id number] MD Andrew Arredondo MD Phone: [phone]
--- NOTE | 2020-12-16 23:56 | OP ---
[facility] [address] [place] [address] OPERATIVE REPORT Name: BRI CESAR Room: [facility] M.R.#: [id number] Admission: 12/11/20 Attend Phys: Joshua Sawant Discharge: Date of : 46 Report #: [id number] THIS REPORT FOR: cc: Tg Figueroa Tammy RNP Patterson, Jonathan D. MD ~ DATE OF SURGERY: 12/11/2020 PREOPERATIVE DIAGNOSIS: Left benign groin mass, 2 cm. POSTOPERATIVE DIAGNOSIS: Left benign groin mass, 2 cm. OPERATION: Excision of benign left groin mass, 2 cm. SURGEON: Joshua Sawant MD ANESTHESIA: General. ESTIMATED BLOOD LOSS: Minimal. SPECIMENS: Left groin mass. DESCRIPTION OF PROCEDURE: After informed consent was obtained, the patient was brought to the operating room and placed supine. SCDs were placed and working, preoperative antibiotics were administered, general anesthesia was induced. The left groin was prepped and draped in the usual sterile fashion. A 2 cm elliptical incision was made over the mass. Cautery dissection was made down to healthy subcutaneous fat. The mass was excised. The skin was then closed loosely with a 4-0 Monocryl. Incisions were dressed with Steri-Strips. COMPLICATIONS: None. DISPOSITION: The patient was taken to recovery in satisfactory condition. <ELECTRONICALLY SIGNED> By: Joshua Sawant MD 12/16/20 2356 0757 [id number] Sawant MD /nt
== END | disposition home or self-care (01) ==
LOC: M.SUR 06:06
PROVIDERS: ATTEND Surgery
DX: L72.0 Epidermal cyst (principal); L98.9 Disorder of the skin and subcutaneous tissue, unspecified; L90.5 Scar conditions and fibrosis of skin; I10 Essential (primary) hypertension; M19.90 Unspecified osteoarthritis, unspecified site; K21.9 Gastro-esophageal reflux disease without esophagitis; Z98.890 Other specified postprocedural states; Z79.899 Other long term (current) drug therapy; Z20.822 Contact with and (suspected) exposure to COVID-19

== ENCOUNTER → 2021-02-13 | Outpatient (CLI) | payer MEDICARE, OTHER | LOC: M.RAD 13:21 | PROVIDERS: ATTEND Registered Nurse Diabetes Educator | DX: Z12.31 Encounter for screening mammogram for malignant neoplasm of breast (principal); M85.88 Other specified disorders of bone density and structure, other site; M81.0 Age-related osteoporosis without current pathological fracture; Z78.0 Asymptomatic menopausal state ==